=== PATIENT | female | born 1985 | race Caucasian/White ===

== ENCOUNTER 2020-06-25 16:44 | Observation (INO) | payer BC, OTHER ==
[~2020-06-25 16:44] MED LIST: DEXAMETHASONE INJ 10 MG/ML VIAL ONE; LIDOCAINE 1% 10 ML VIAL INJ ONE; MAGNESIUM SULFATE INJ 1 GM/2 ML VIAL ONE; PROPOFOL 200 MG/20 ML VIAL IV ONE; SODIUM CHLORIDE 0.9% 50 ML VIAL ONE
--- NOTE | 2020-06-25 16:47 | ED.PDOC ---
History of Present Illness - General Time Seen by Provider: 06/25/20 16:46 Information Source: patient, family Exam Limitations: no limitations - History of Present Illness Initial Comments: 35 yo F comes in with acute RLQ pain. Started aprx 4-5 hours ago. Seemed to get better, but now a lot worse. + n, but no vomiting. denies diarrhea, black or bloody bm. no prior abdominal surgery. Denies dysuria or hematuira. states it feels like stabbing radiates to suprapubic area. LMP - started yesterday. Abdominal Pain Onset Location: RLQ Quality: moderate, stabbing Timing/Duration: 4-6 hours Worsening Factors: nothing Associated Symptoms: nausea/vomiting Review of Systems - Review of Systems Constitutional: States: diaphoresis. Denies: chills, fever EENTM: Denies: blurred vision, double vision, ear discharge, nose congestion, mouth pain Respiratory: Denies: cough, short of breath, stridor Cardiology: Denies: chest pain, edema, palpitations, syncope Gastrointestinal/Abdominal: States: abdominal pain, nausea. Denies: constipation, diarrhea, vomiting Genitourinary: Denies: discharge, dysuria, frequency, hematuria Musculoskeletal: Denies: back pain, muscle pain Neurological: Denies: headache, numbness, paresthesia, pre-existing deficit, tingling, tremors, weakness Endocrine: Denies: increased hunger, increased thirst, increased urine, unexplained weight gain, unexplained weight loss Hematologic/Lymphatic: Denies: blood clots, easy bleeding, easy bruising Past Medical History (General) - Patient Medical History Hx Seizures: No Hx Stroke: No Hx Dementia: No Hx Asthma: No Hx of COPD: No Hx Cardiac Disorders: No Hx Congestive Heart Failure: No Hx Pacemaker: No Hx Hypertension: No Hx Thyroid Disease: No Hx Diabetes: No Hx Gastroesophageal Reflux: No Hx Renal Disease: No Hx Cancer: No Hx of HIV: No Hx Hepatitis B: No Hx Hepatitis C: No Hx MRSA: No Hx Other PMH: Yes Hx Other - free text: Back pain, Recurrent ear infections. Surgical History: other - D&C, cochlear implant Other Surgeries:: back surgery - Social History Hx Tobacco Use: No Hx Alcohol Use: No Hx Substance Use: No Hx Depression: Yes - Activities of Daily Living Patient Lives Alone: No - Female History Patient is a Female of Child Bearing Age (10 -59 yrs old): Yes - Hx Last Menstrual Period: 06/24/20 Patient : No Family Medical History - Family History Mother Family History: Unknown Physical Exam - Physical Exam General Appearance: Alert, Anxious, No apparent distress, Well Developed, Well Groomed, Well Hydrated, Well Nourished Eyes, Ears, Nose, Throat Exam: PERRL/EOMI, normal ENT inspection Neck: non-tender, full range of motion, supple, normal inspection Respiratory: chest non-tender, lungs clear, normal breath sounds, no respiratory distress, no accessory muscle use Cardiovascular/Chest: normal peripheral pulses, regular rate, rhythm, no edema, no gallop, no JVD, no murmur, tachycardia Peripheral Pulses: 2+ Gastrointestinal/Abdominal: normal bowel sounds, soft, no organomegaly, no pulsatile mass, tenderness - RLQ tenderness, + mcburney, negative rosving, no RUQ pain, no cva pain. 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 Will get IVF, zofran and morphine. allergy to demerol is n/v, has taken hydrocodone before. Patient given 4 mg morphine for pain, zofran for nausea. CBC shows mild Leukocytosis. Hypokalemia. Will replace now [address] shows cholelithiasis, renal stones without obstruction, and acute appendicitis. Will get blood cultures. Will start levaquin and flagyl. Dr. Garcia at bedside, will admit the patient. The data reviewed when caring for this patient included: nurse notes, prior records, etc. The history and assessments from nurses notes were reviewed and considered. My assessment and the results of testing completed here in the ED were discussed with the patient/family. All questions were answered, and they express understanding of my assessment and the plan. VSS, patient was admitted to the floor in stable condition. Lilibeth Reyes DO #[id number] - Results/Orders Results/Orders: 06/25/20 16:57 Sodium Chloride 0.9% 1000ML [Ns 1000 ml] 1,000 ml IVS STAT 06/25/20 17:40 URINALYSIS Stat 06/25/20 18:00 levoFLOXacin 750MG IV [Levaquin 750MG IV] 750 mg Premix Bag 1 bag IVPB ONCE metroNIDAZOLE IV PREMIX 500MG [Flagyl IV Premix 500 MG/100 ML] 500 mg Premix Bag 1 bag IVPB ONCE 06/25/20 18:02 BLOOD CULTURE Stat Laboratory Results WBC 11.3 K/mm3 (4.8-10.8) H 06/25/20 17:00 RBC 4.58 M/mm3 (4.20-5.40) 06/25/20 17:00 Hgb 14.8 gm/dL (12.0-16.0) 06/25/20 17:00 Hct 41.6 % (36.0-47.0) 06/25/20 17:00 MCV 91.0 fl (81.0-99.0) 06/25/20 17:00 MCH 32.3 pg (27.0-31.0) H 06/25/20 17:00 MCHC 35.4 g/dL (33.0-37.0) 06/25/20 17:00 RDW 12.7 % (11.5-14.5) 06/25/20 17:00 Plt Count 212 K/mm3 (130-400) 06/25/20 17:00 MPV 8.3 fl (7.40-10.4) 06/25/20 17:00 Absolute Neuts (auto) 9.00 K/uL (1.8-6.8) H 06/25/20 17:00 Absolute Lymphs (auto) 1.70 K/uL (1.0-3.4) 06/25/20 17:00 Absolute Monos (auto) 0.40 K/uL (0.2-0.8) 06/25/20 17:00 Absolute Eos (auto) 0.00 K/uL (0.0-0.4) 06/25/20 17:00 Absolute Basos (auto) 0.20 K/uL (0.0-0.1) H 06/25/20 17:00 Neutrophils % 79.8 % (42.0-78.0) H 06/25/20 17:00 Lymphocytes % 15.0 % (20.0-50.0) L 06/25/20 17:00 Monocytes % 3.8 % (2.0-9.0) 06/25/20 17:00 Eosinophils % 0.0 % (1.0-5.0) L 06/25/20 17:00 Basophils % 1.4 % (0.0-2.0) 06/25/20 17:00 Sodium 136 mmol/L (135-145) 06/25/20 17:00 Potassium 3.0 mmol/L (3.6-5.0) L 06/25/20 17:00 Chloride 99 mmol/L (101-111) L 06/25/20 17:00 Carbon Dioxide 22 mmol/L (21-31) 06/25/20 17:00 Anion Gap 18.0 (12-18) 06/25/20 17:00 BUN 16 mg/dL (7-18) 06/25/20 17:00 Creatinine 0.73 mg/dL (0.6-1.3) 06/25/20 17:00 BUN/Creatinine Ratio 21.9 (10-20) H 06/25/20 17:00 Random Glucose 100 mg/dL (70-105) 06/25/20 17:00 Serum Osmolality 273.2 mOsm/L (275-295) L 06/25/20 17:00 Calcium 9.3 mg/dL (8.4-10.2) 06/25/20 17:00 Total Bilirubin 1.1 mg/dL (0.2-1.0) H 06/25/20 17:00 AST 29 IU/L (10-42) 06/25/20 17:00 ALT 28 IU/L (10-60) 06/25/20 17:00 Alkaline Phosphatase 86 IU/L (42-121) 06/25/20 17:00 Serum Total Protein 8.6 gm/dL (6.4-8.2) H 06/25/20 17:00 Albumin 5.0 g/dl (3.2-5.5) 06/25/20 17:00 Globulin 3.6 gm/dL (2.3-3.5) H 06/25/20 17:00 Albumin/Globulin Ratio 1.4 (1.1-1.9) 06/25/20 17:00 Lipase 33 U/L (22-51) 06/25/20 17:00 Serum HCG, Qual Negative (NEGATIVE) 06/25/20 17:00 Urine Color Yellow (Yellow) 06/25/20 17:40 Urine Appearance Cloudy (Clear) 06/25/20 17:40 Urine pH 5.5 (4.5-7.8) 06/25/20 17:40 Ur Specific [place] >= 1.030 (1.005-1.030) 06/25/20 17:40 Urine Protein 30 mg/dL 06/25/20 17:40 Urine Glucose (UA) Negative mg/dL (Negative) 06/25/20 17:40 Urine Ketones >=160 mg/dL (NEGATIVE) 06/25/20 17:40 Urine Blood Large (Negative) H 06/25/20 17:40 Urine Nitrite Positive H 06/25/20 17:40 Urine Bilirubin Negative (NEGATIVE) 06/25/20 17:40 Urine Urobilinogen 0.2 mg/dL (0.2-1.0) 06/25/20 17:40 Ur Leukocyte Esterase Small (Negative) H 06/25/20 17:40 Urine RBC Tntc /hpf H 06/25/20 17:40 Urine WBC 10-20 /hpf H 06/25/20 17:40 Ur Epithelial Cells 10-20 /hpf 06/25/20 17:40 Urine Bacteria 2+ H 06/25/20 17:40 - Consult/PCP Time Called: 17:45 Consult/PCP: Dr. Garcia - Additional EKG/XRAY/Consults Time Called: 17:35 Consult/PCP: Dr Garcia Departure - Departure Clinical Impression: Hypokalemia Appendicitis Qualifiers: Appendicitis type: acute appendicitis Acute appendicitis type: with localized peritonitis Appendicitis gangrene presence: without gangrene Appendicitis perforation presence: without perforation Appendicitis abscess presence: without abscess Qualified Code(s): K35.30 - Acute appendicitis with localized peritonitis, without perforation or gangrene UTI (urinary tract infection) Qualifiers: Urinary tract infection type: acute cystitis Hematuria presence: with hematuria Qualified Code(s): N30.01 - Acute cystitis with hematuria Cholelithiasis Qualifiers: Cholelithiasis location: gallbladder Cholecystitis presence: without cholecystitis Biliary obstruction: without biliary obstruction Qualified Code(s): K80.20 - Calculus of gallbladder without cholecystitis without obstruction Time of Disposition: 18:29 Disposition: Admit Patient Diet: other - NPO Home Medications: Ambulatory Orders NK 06/25/20 Decision To Admit - Decistion To Admit Decision to Admit Reason: Admit from ER - surgical nature
[2020-06-25] MEDS ORDERED: MORPHINE SULFATE INJ 10 MG/ML VIAL IV ONE ×2 (16:57→18:46)
[2020-06-25] MEDS ORDERED: ONDANSETRON INJ 4 MG/2 ML VIAL IV ONE (16:57)
[2020-06-25] MEDS ORDERED: SODIUM CHLORIDE 0.9% 1000ML 1,000 ML IVS PRN (16:57)
[2020-06-25] MEDS ORDERED: KETOROLAC TROMETHAMINE INJ 30 MG/ML VIAL IV ONE (17:29)
[2020-06-25] MEDS ORDERED: POTASSIUM CHLORIDE ELIXIR 20 MEQ/15 ML UD PO ONE (17:30)
--- NOTE | 2020-06-25 17:50 | CT ---
EXAM: CT Abdomen and Pelvis Without Intravenous Contrast CLINICAL HISTORY: The patient is 35 years old and is Female; rlq pain TECHNIQUE: Axial computed tomography images of the abdomen and pelvis without intravenous contrast. Sagittal and coronal reformatted images were created and reviewed. This CT exam was performed using one or more of the following dose reduction techniques: automated exposure control, adjustment of the mA and/or kV according to patient size, and/or use of iterative reconstruction technique. COMPARISON: No relevant prior studies available. FINDINGS: Lung bases: Unremarkable. No mass. No consolidation. ABDOMEN: Liver: Unremarkable. Gallbladder and bile ducts: Small calcified stones in the gallbladder. No ductal dilation. Pancreas: Unremarkable. No ductal dilation. Spleen: Unremarkable. No splenomegaly. Adrenals: Unremarkable. No mass. Kidneys and ureters: Numerous bilateral renal medullary calcifications. No hydronephrosis or ureter stone. Stomach and bowel: Colonic diverticulosis. Colon is collapsed. Submucosal fat infiltration in the wall of the colon can be seen with chronic inflammatory change but this is nonspecific. Stomach is unremarkable. No small bowel dilatation or obstruction. PELVIS: Appendix: Retrocecal appendix is enlarged measuring up to 12 mm in diameter distally. There is adjacent free fluid and fat stranding. Bladder: Unremarkable. No stones. Reproductive: Unremarkable as visualized. ABDOMEN and PELVIS: Intraperitoneal space: No pneumoperitoneum to suggest perforation. Bones/joints: Straightening of the normal lordotic curvature of the spine line. L5-S1 degenerative changes. No acute fracture. No dislocation. Soft tissues: Unremarkable. Vasculature: Unremarkable. No abdominal aortic aneurysm. Lymph nodes: No pathologically enlarged lymph nodes. IMPRESSION: 1. Findings are consistent with acute appendicitis. No free air to suggest perforation. 2. Cholelithiasis. 3. Colonic diverticulosis. 4. Bilateral renal medullary nephrocalcinosis. No hydronephrosis or ureter stone. 5. Additional non-emergent findings as above. Electronically signed by: Echo Redd MD 06/25/2020 5:48 PM CDT
[2020-06-25] MEDS ORDERED: levoFLOXacin 750MG IV 750 MG in PREMIX BAG 1 BAG IVPB ONE (18:00)
[2020-06-25] MEDS ORDERED: metroNIDAZOLE IV PREMIX 500MG 500 MG in PREMIX BAG 1 BAG IVPB ONE (18:00)
[2020-06-25] MEDS ORDERED: MORPHINE SULFATE INJ 10 MG/ML VIAL IV PRN (18:41)
[2020-06-25] MEDS ORDERED: ONDANSETRON INJ 4 MG/2 ML VIAL IV PRN ×2 (18:41→19:47)
[2020-06-25] MEDS ORDERED: KCL 20MEQ/D5 1/2NS 1,000 ML IVS PRN (18:41)
[2020-06-25] MEDS ORDERED: MORPHINE SULFATE INJ 10 MG/ML VIAL ONE (18:48)
[2020-06-25] MEDS ORDERED: metroNIDAZOLE 500 MG TAB PO SCH (19:00)
[2020-06-25] MEDS ORDERED: PANTOPRAZOLE SODIUM IV 40 MG VIAL IV SCH (19:00)
[2020-06-25] MEDS: KCL 20MEQ/D5 1/2NS 1,000 ML IVS PRN (21:56)
[2020-06-26] MEDS ORDERED: SODIUM CHLORIDE 0.9% (FLUSH) 10 ML SYG ONE (01:05)
[2020-06-26] MEDS: MORPHINE SULFATE INJ 10 MG/ML VIAL IV PRN ×3 (01:12→07:58)
[2020-06-26] MEDS ORDERED: metroNIDAZOLE IV PREMIX 500MG 100 ML IVPB ONE ×3 (02:51→17:19)
[2020-06-26] MEDS: metroNIDAZOLE IV PREMIX 500MG 500 MG in PREMIX BAG 1 BAG IVPB SCH ×3 (03:18→18:34)
[2020-06-26] MEDS ORDERED: ONDANSETRON INJ 4 MG/2 ML VIAL IV ONE ×2 (04:33→10:05)
[2020-06-26] MEDS ORDERED: BUPIVACAINE 0.25% W/EPI 50 ML VIAL INJ ONE (07:18)
[2020-06-26] MEDS ORDERED: DEXMEDETOMIDINE HCL 200 MCG/2 ML INJ IV ONE (07:52)
[2020-06-26] MEDS ORDERED: SUGAMMADEX SODIUM 200 MG/2 ML VIAL IV ONE (07:52)
[2020-06-26] MEDS ORDERED: fentaNYL CITRATE INJ 50 MCG/ML AMP ONE (07:53)
[2020-06-26] MEDS ORDERED: FAMOTIDINE 10 MG/ML ML IV ONE (07:53)
[2020-06-26] MEDS ORDERED: MIDAZOLAM INJ 2 MG/2 ML VIAL ONE (07:53)
[2020-06-26] MEDS ORDERED: ROCURONIUM BROMIDE 10 MG/ML VIAL ONE (07:53)
[2020-06-26] MEDS ORDERED: BUPIVACAINE 0.25% INJ 30 ML VIAL INJ ONE (08:15)
[2020-06-26] MEDS ORDERED: levoFLOXacin 500MG IV 500 MG in PREMIX BAG 1 BAG IVPB SCH (09:00)
[2020-06-26] MEDS ORDERED: ONDANSETRON INJ 4 MG/2 ML VIAL IV PRN (09:28)
[2020-06-26] MEDS ORDERED: SODIUM CHLORIDE 0.45% 1000ML 1,000 ML IVS PRN (09:28)
--- NOTE | 2020-06-26 10:02 | OP ---
DATE OF PROCEDURE: 06/26/20 PREOPERATIVE DIAGNOSIS: 1. Right lower quadrant abdominal pain. 2. Leukocytosis. 3. Abnormal CT scan suspicious for retrocecal appendicitis. POSTOPERATIVE DIAGNOSIS: 1. Right lower quadrant abdominal pain. 2. Leukocytosis. 3. Abnormal CT scan suspicious for retrocecal appendicitis. 4. Acute retrocecal appendicitis without gross perforation. PROCEDURE: 1. Laparoscopic appendectomy. SURGEON: Dinesh Garcia MD. PROVIDER EDUCATION SPECIALIST: None. ANESTHESIA: General endotracheal anesthesia and local infiltration of 0.25% Marcaine with epinephrine. INDICATION: The patient is a 35-year-old female who developed abdominal pain which worsened. She had nausea and vomiting. She presented to the Emergency Room and was found to have a mild leukocytosis and a CT scan was obtained which revealed a retrocecal appendix with some fluid and stranding. She was also noted to have gallstones and kidney stones and what appeared to be a urinary tract infection. Microbiology is pending on that. FINDINGS: The appendix was retrocecal. It was not long. It did not appear to have gross perforation when it was dissected free. No other obvious acute pathology was identified. PROCEDURE: The patient was placed in the supine position and underwent general endotracheal anesthesia. Marmolejo catheter was placed. The patient was prepped and draped in the usual sterile manner. At this time, a surgical time-out was taken. The infraumbilical area was infiltrated with local anesthesia. A curvilinear incision was fashioned and carried down through the subcutaneous tissue to the midline fascia. Traction sutures were placed on either side of the midline. A small incision was made in the midline fascia. The peritoneum was opened bluntly. Sylvia trocar was introduced under direct vision into the abdominal cavity and fixed in place with a 20 mL balloon. CO2 was then insufflated until a pressure of 12 mmHg was reached and the abdomen was tympanitic in all four quadrants. When this was done, the laparoscope was introduced and the abdomen was inspected showing seropurulent fluid in the right lower quadrant and in the pelvis. The suprapubic port was placed under direct vision and then the fluid was suctioned out. When this was done, a left lower quadrant port was placed under direct vision in the usual manner. When this was done, the right lower quadrant was explored and the base of the appendix was identified. It was elevated and was transected using the Endo-MALISSA with a vascular load. When this was done, the base was elevated and dissection retrograde was done until the appendix was elevated. The remaining mesoappendix was then stapled and divided. When this was done, the appendix was placed in an EndoCatch bag and removed from the left lower quadrant port site under direct vision in the usual manner. At this point, the right lower quadrant and pelvis were both irrigated with saline. Hemostasis was noted to be adequate. The effluent was noted to have cleared. At this point, the left lower quadrant port was removed and the port site fascia was approximated with two simple sutures of 0 Vicryl placed using the EndoClose device. When these were tightened and tied, hemostasis was noted to be good. At this point, the suprapubic port was removed. Good hemostasis was noted. At this point, the CO2, the laparoscope and the infraumbilical port were removed. The infraumbilical port site fascia was approximated with a single [id number] suture of 0 Vicryl. Subcutaneous tissue was irrigated with saline. Skin edges were loosely approximated with skin vangie. Sterile dressings were applied. The patient was awakened after her Marmolejo catheter was removed and taken to the Recovery Room in good and stable condition. Estimated blood loss was less than 25 mL. All sponge, needle and instrument counts were correct. #[id number] [facility]
[2020-06-26] MEDS ORDERED: HYDROmorphone HCL INJ 2 MG/ML VIAL ONE (10:03)
[2020-06-26] MEDS ORDERED: ONDANSETRON INJ 4 MG/2 ML VIAL ONE ×2 (10:03→10:04)
[2020-06-26] MEDS ORDERED: HYDROmorphone HCL INJ 2 MG/ML VIAL IV ONE (10:15)
[2020-06-26] MEDS: levoFLOXacin 500MG IV 500 MG in PREMIX BAG 1 BAG IVPB SCH (10:45)
[2020-06-26] MEDS ORDERED: levoFLOXacin 500MG IV 100 ML IVPB ONE (12:16)
[2020-06-26] MEDS ORDERED: HYDROcodone 10MG/APAP 325MG 1 EA TAB ONE ×2 (15:13→19:12)
[2020-06-26] MEDS ORDERED: KCL 20MEQ/D5 1/2NS 1,000 ML IVS ONE (15:13)
[2020-06-26] MEDS: HYDROcodone 10MG/APAP 325MG 1 EA TAB PO PRN ×2 (15:43→19:27)
[2020-06-26] MEDS: KCL 20MEQ/D5 1/2NS 1,000 ML IVS PRN (16:41)
[2020-06-26] MEDS ORDERED: PANTOPRAZOLE SODIUM IV 40 MG VIAL ONE (17:19)
[2020-06-26] MEDS ORDERED: PANTOPRAZOLE SODIUM IV 40 MG VIAL IV SCH (19:00)
[2020-06-27] MEDS ORDERED: KCL 20MEQ/D5 1/2NS 1,000 ML IVS ONE (01:24)
[2020-06-27] MEDS: KCL 20MEQ/D5 1/2NS 1,000 ML IVS PRN (01:25)
[2020-06-27] MEDS ORDERED: HYDROcodone 10MG/APAP 325MG 1 EA TAB ONE ×2 (02:08→08:44)
[2020-06-27] MEDS: HYDROcodone 10MG/APAP 325MG 1 EA TAB PO PRN ×2 (02:11→08:46)
[2020-06-27] MEDS ORDERED: metroNIDAZOLE IV PREMIX 500MG 100 ML IVPB ONE (02:14)
[2020-06-27] MEDS: metroNIDAZOLE IV PREMIX 500MG 500 MG in PREMIX BAG 1 BAG IVPB SCH (02:37)
[2020-06-27] MEDS ORDERED: levoFLOXacin 500MG IV 100 ML IVPB ONE (07:17)
[2020-06-27] MEDS: levoFLOXacin 500MG IV 500 MG in PREMIX BAG 1 BAG IVPB SCH (08:07)
[2020-06-27] MEDS ORDERED: MAGNESIUM HYDROXIDE 30 ML UD PO ONE (09:48)
[2020-06-27] MEDS ORDERED: KCL 20MEQ/D5 1/2NS 1,000 ML IVS PRN (09:48)
[2020-06-27] MEDS ORDERED: MAGNESIUM HYDROXIDE 30 ML UD ONE (09:59)
[2020-06-27] MEDS ORDERED: ONDANSETRON INJ 4 MG/2 ML VIAL ONE (10:11)
[2020-06-27 11:00] VITALS: BP 110/75; TEMP 98.1; O2SAT 96
== END 2020-06-27 11:01 | disposition home or self-care (01) ==
LOC: ER 16:44 → UNDOADMOB 19:47 → INTOOBSV 19:47 → MS 19:47
PROVIDERS: ADMIT Nurse Practitioner; ATTEND Nurse Practitioner
DX: K35.32 Acute appendicitis with perforation, localized peritonitis, and gangrene, without abscess (principal); N30.01 Acute cystitis with hematuria; E87.6 Hypokalemia; R11.2 Nausea with vomiting, unspecified; K80.20 Calculus of gallbladder without cholecystitis without obstruction; K57.30 Diverticulosis of large intestine without perforation or abscess without bleeding; E83.59 Other disorders of calcium metabolism; N29 Other disorders of kidney and ureter in diseases classified elsewhere; Z96.21 Cochlear implant status; Z88.0 Allergy status to penicillin; Z88.1 Allergy status to other antibiotic agents; Z88.6 Allergy status to analgesic agent; Z88.8 Allergy status to other drugs, medicaments and biological substances
CPT/HCPCS: 96366 ×2; 96367; 96365; 96375 ×2; 96376 ×3; J3010; J1170 ×2; J1885; J1956 ×3; J3490 ×5; J2270 ×5; J2405 ×7; J7030; A4216; J2250; 80053 ×2; 87086; 36415 ×3; 81001; 85025 ×2; 87040; 87186; 84703; 83690; 87088; 74176; 94760 ×2; 99285; G0378; 44970; 00840

== ENCOUNTER 2020-07-25 05:17 | Day surgery (SDC) | payer BC ==
[2020-07-25] MEDS ORDERED: levoFLOXacin 500MG IV 100 ML IVPB ONE (06:41)
[2020-07-25] MEDS ORDERED: LACTATED RINGERS 1,000 ML ONE (06:41)
[2020-07-25] MEDS ORDERED: MAGNESIUM SULFATE INJ 1 GM/2 ML VIAL ONE (07:00)
[2020-07-25] MEDS ORDERED: PROPOFOL 200 MG/20 ML VIAL IV ONE (07:00)
[2020-07-25] MEDS ORDERED: LIDOCAINE 1% 10 ML VIAL INJ ONE (07:00)
[2020-07-25] MEDS ORDERED: HEPARIN SODIUM (PORCINE) 10,000 UNITS/ML VIAL ONE (07:33)
[2020-07-25] MEDS ORDERED: BUPIVACAINE 0.25% W/EPI 50 ML VIAL INJ ONE (07:33)
[2020-07-25] MEDS ORDERED: diphenhydrAMINE HCL 50 MG/ML VIAL IV ONE (07:50)
[2020-07-25] MEDS ORDERED: diphenhydrAMINE HCL 50 MG/ML VIAL ONE (07:50)
[2020-07-25] MEDS ORDERED: DEXMEDETOMIDINE HCL 200 MCG/2 ML INJ IV ONE (07:52)
[2020-07-25] MEDS ORDERED: SUGAMMADEX SODIUM 200 MG/2 ML VIAL IV ONE (07:52)
[2020-07-25] MEDS ORDERED: MIDAZOLAM INJ 2 MG/2 ML VIAL ONE (07:53)
[2020-07-25] MEDS ORDERED: ROCURONIUM BROMIDE 10 MG/ML VIAL ONE (07:53)
[2020-07-25] MEDS ORDERED: FAMOTIDINE INJ 10 MG/ML VIAL IV ONE (07:53)
[2020-07-25] MEDS ORDERED: fentaNYL CITRATE INJ 50 MCG/ML 2 ML AMP ONE (07:53)
[2020-07-25] MEDS ORDERED: KETAMINE HCL 100 MG/ML VIAL ONE (07:53)
[2020-07-25] MEDS ORDERED: LACTATED RINGERS 300 ML IVS ONE (09:50)
--- NOTE | 2020-07-25 10:08 | OP ---
DATE OF PROCEDURE: 07/25/20 PREOPERATIVE DIAGNOSIS: 1. Symptomatic cholelithiasis. POSTOPERATIVE DIAGNOSIS: 1. Symptomatic cholelithiasis. PROCEDURE: 1. Laparoscopic cholecystectomy with intraoperative cholangiography using fluoroscopy. SURGEON: Dinesh Garcia MD. CELL COVERER: None. ANESTHESIA: Local infiltration of 0.25% Marcaine with epinephrine and general endotracheal anesthesia. INDICATION: The patient is a 35-year-old female who underwent laparoscopic appendectomy for acute suppurative appendicitis. At the time, a diagnosis of cholelithiasis was made by CT scan. In the postoperative period, the patient discussed her problems with fatty food and intolerance with right upper quadrant pain, gas and diarrhea. The patient was brought to the Surgical Suite today for elective cholecystectomy after the risks, benefits and alternatives to the procedure were discussed and accepted. FINDINGS: The gallbladder wall was thickened. There were some adhesions from the gallbladder to the liver. There were also adhesions from the liver to the diaphragm, mostly laterally. No other acute pathology was identified. Intraoperative cholangiography revealed free flow into the duodenum with no filling defects or strictures noted. DESCRIPTION OF PROCEDURE: After adequate general endotracheal anesthesia was obtained, the patient was prepped and draped in the usual sterile manner. Surgical time-out was taken. The infraumbilical area and the previous incision was infiltrated with local anesthesia. The skin was incised with a knife and dissection was carried down through the fascia using blunt dissection. When this was done, the previous suture was identified and pulled free. Using blunt dissection, the previous fascial defect was opened. An Sylvia trocar was introduced under direct vision into the abdominal cavity and fixed in place with the 20 mL balloon. CO2 was then insufflated until a pressure of 12 mmHg was reached and the abdomen was tympanitic in all four quadrants. When this was done, the laparoscope was introduced. The abdomen was inspected with the previously noted findings. The patient was then placed in reverse Trendelenburg position and turned to the left side. The upper abdominal ports were placed under direct vision. The gallbladder was grasped, retracted anteriorly and laterally. The neck of the gallbladder was retracted laterally. The triangle of Calot was then explored using the blunt dissection. When this was done, the cystic duct and cystic artery identified and isolated. The cystic artery was hemoclipped twice proximally and once distally. The cystic duct was hemoclipped once proximally. A small incision was made in the cystic duct. After some difficulty and requiring a second small incision more proximally on the cystic duct, the cholangiogram catheter was introduced into the duct and fixed in place. Cholangiograms were then taken using fluoroscopy which revealed free flow into the duodenum with no filling defects or strictures noted. When this was done, the cystic duct catheter was removed. The cystic duct was hemoclipped three times distally and divided between the hemoclips. The cystic artery was divided. The gallbladder was then dissected free from the gallbladder bed of the liver using electrocautery. The gallbladder was placed in an EndoCatch bag and removed from the infraumbilical port site in the usual manner under direct vision. When this was done, the port was replaced and at this point, the subhepatic space was inspected. There was no bleeding or bile leak identified. At this point, it was decided to take down the adhesions above the liver to the diaphragm. This was done using electrocautery without difficulty. When this was done, the subhepatic space and subphrenic space were both irrigated copiously with saline. The effluent was noted to be clear. At this point, the upper abdominal ports were removed under direct vision and adequate hemostasis was noted. At this point, the CO2, the laparoscope and the infraumbilical port were removed. The infraumbilical port site fascia was approximated with a single [id number] suture of 0 Vicryl. Subcutaneous tissue was irrigated with saline. Skin edges were approximated with 4-0 Vicryl subcuticular sutures, benzoin and Steri-Strips. Sterile dressings were applied. The patient was awakened and taken to the Recovery Room in good and stable condition. Estimated blood loss was less than 25 mL. All sponge, needle and instrument counts were correct. #[id number] [facility]
[2020-07-25] MEDS ORDERED: ONDANSETRON INJ 4 MG/2 ML VIAL IV ONE (10:10)
[2020-07-25] MEDS ORDERED: ONDANSETRON INJ 4 MG/2 ML VIAL ONE (10:11)
[2020-07-25 11:45] VITALS: BP 93/64; TEMP 97.4; O2SAT 94
--- NOTE | 2020-07-27 16:40 | RAD ---
EXAM DESCRIPTION: Fluoroscopy Up to 1Hr CLINICAL HISTORY: 35 years Female, IOC COMPARISON: CT abdomen and pelvis 06/25/2020 TECHNIQUE: Fluoroscopic images from an intraoperative radiograph. Fluoroscopy time: 14.7 seconds Fluoroscopic images: 1 Total dose: 2.56 mGy IMPRESSION: Intraprocedural fluoroscopic images saved for the benefit of the surgeon. Cannulation of the cystic duct with opacification of the biliary tree. Nondilated common bile duct and without persistent filling defect or stricture. The pancreatic duct is not visualized. Please refer to procedural report for full details. Electronically signed by: Eddie Santoyo MD 07/27/2020 4:39 PM CDT
== END 2020-07-25 11:10 | disposition home or self-care (01) ==
LOC: AMB 05:17
PROVIDERS: ATTEND Surgery
DX: K80.10 Calculus of gallbladder with chronic cholecystitis without obstruction (principal); Z88.1 Allergy status to other antibiotic agents; Z88.5 Allergy status to narcotic agent; Z88.8 Allergy status to other drugs, medicaments and biological substances
CPT/HCPCS: 00790; 36415; 47563; 76000; 80053; 81001; 81025; 85025; J1200; J1644; J1956; J2250; J2405; J3010; J3475; J3490; J7120